=== PATIENT | male | born 1990 | race Caucasian/White ===

== ENCOUNTER 2017-02-15 02:21 | Emergency (ER) | payer OTHER ==
[~2017-02-15] VITALS: Ht 193 cm; Wt 72.6 kg
== END 2017-02-15 04:13 | disposition home or self-care (01) ==
LOC: ED 02:21
DX: N50.89 Other specified disorders of the male genital organs (principal); N50.811 Right testicular pain; I86.1 Scrotal varices; F17.200 Nicotine dependence, unspecified, uncomplicated
CPT/HCPCS: 76870; 81001; 99284